=== PATIENT | female | born 1945 | race Caucasian/White ===

== ENCOUNTER → 2016-07-21 | Outpatient (CLI) | payer MEDICARE, BC, OTHER ==
--- NOTE | 2016-07-21 11:30 | REP ---
BILATERAL HAND COMPLETE: 07/21/2016. Clinical history: 2 weeks of pain. No trauma described. Findings:Right hand: Four views show distal radius and ulna without fracture or focal lesion. The carpal bones and their joint spaces are intact. The metacarpals are without fracture and their articulations are without erosion, subluxation or large spurs. There is slight narrowing of the MCP joints. Likewise the phalanges are without fracture or focal lesion. There are minimal degenerative changes with small spurs and narrowing of some of the IP joints. Impression: 1. Mild osteoarthritis of the right hand without visible or displaced fracture, avulsion or erosion. Left hand: Four views show distal radius and ulna without fracture or focal lesion. The carpal bones and their joint spaces are intact. The metacarpals are without fracture and articulations are without erosion, subluxation or large spurs. There is slight narrowing of the MCP joints. Likewise the phalanges are without fracture or focal lesion and the minimal degenerative changes with small spurs and narrowing of some of the IP joints. Impression: 1. Mild osteoarthritis of the left hand without visible or displaced fracture, avulsion or erosion. Signed by Royce Mena MD 07/21/2016 07:29 P
== END ==
LOC: M WUC 10:38
PROVIDERS: ATTEND Physician Assistant
DX: M19.042 Primary osteoarthritis, left hand (principal); M19.041 Primary osteoarthritis, right hand; M25.541 Pain in joints of right hand; M25.542 Pain in joints of left hand

== ENCOUNTER 2017-08-20 10:40 | Day surgery (SDC) | payer MEDICARE, BC, OTHER ==
[2017-08-20] MEDS: NS 1,000 ML IV (10:45)
[2017-08-20] MEDS ORDERED: ALBUTEROL SULFATE 2.5 MG/0.5 ML INH NEB SOLN INH (11:15)
[2017-08-20] MEDS ORDERED: PROPOFOL 200 MG/20 ML VIAL As Ordered ×2 (11:22)
== END 2017-08-20 13:11 | disposition home or self-care (01) ==
LOC: M OPP 10:40
DX: K62.1 Rectal polyp (principal); K63.5 Polyp of colon; D12.3 Benign neoplasm of transverse colon; K64.4 Residual hemorrhoidal skin tags; Z86.010 Personal history of colon polyps; K59.00 Constipation, unspecified; K44.9 Diaphragmatic hernia without obstruction or gangrene; R13.10 Dysphagia, unspecified; K31.89 Other diseases of stomach and duodenum; I10 Essential (primary) hypertension; E03.9 Hypothyroidism, unspecified; Z79.899 Other long term (current) drug therapy; Z88.0 Allergy status to penicillin; Z88.8 Allergy status to other drugs, medicaments and biological substances; Z91.040 Latex allergy status; J30.2 Other seasonal allergic rhinitis; M13.849 Other specified arthritis, unspecified hand
CPT/HCPCS: 45385

== ENCOUNTER → 2017-09-16 | Outpatient (CLI) | payer MEDICARE, BC | LOC: M WHC 10:11 | DX: Z12.31 Encounter for screening mammogram for malignant neoplasm of breast (principal); Z01.419 Encounter for gynecological examination (general) (routine) without abnormal findings (principal); Z78.0 Asymptomatic menopausal state | CPT/HCPCS: 77067 ==

== ENCOUNTER → 2018-10-21 | Outpatient (CLI) | payer MEDICARE, BC ==
[~2018-10-21] MED LIST: IPRA0.00 IN; LEVO137T2 PO; LISI-538 PO; NICO21DI31 TOP; OMEP-221 PO; PROAAER10 INH; PROP60CA PO
--- NOTE | 2018-10-21 11:06 | REPMRS ---
Patient History The patient states she had a clinical breast exam in 10/2018. Patient is postmenopausal. No known family history of cancer. No Hormone Replacement Therapy 3D TOMOSYNTHESIS WAS PERFORMED. The [facility] lifetime risk for breast cancer is 3.6%. Digital Woman Screen Mammo: October 21, 2018 - Exam #: [id number] Bilateral CC and MLO view(s) were taken. Technologist: Daija Agudelo, Technologist Prior study comparison: September 16, 2017, digital woman screen mammo performed at [facility]. July 23, 2012, digital woman screen mammo performed at [facility]. FINDINGS: There are scattered fibroglandular densities. There has been no change in the appearance of the mammogram from the prior studies. There is a mild amount of residual fibroglandular tissue which is fairly symmetric. There is no interval development of dominant mass, architectural distortion, or clustered microcalcification suggestive of malignancy. Assessment: BI-RADS/ACR category 1 mammogram. Negative Mammogram. Recommendation Routine screening mammogram in 1 year (for women over age 40). This mammogram was interpreted with the aid of an FDA-approved computer-aided dectection system. Electronically Signed By: Gt Noland MD 10/21/18 [id number]
== END ==
LOC: M WHC 09:21
PROVIDERS: ATTEND Nurse Practitioner Family
DX: Z12.31 Encounter for screening mammogram for malignant neoplasm of breast (principal); Z78.0 Asymptomatic menopausal state
CPT/HCPCS: 77063; 77067; G0463

== ENCOUNTER → 2020-10-18 | Outpatient (CLI) | payer MEDICARE, BC ==
[~2020-10-18] MED LIST changes: -LISI-538 PO; +LISI20TA33 PO; +NICO1DIS12 TOP; -NICO21DI31 TOP
[2020-10-18 15:34] LABS: HEMATOCRIT 44.1 % (36.0-47.0); HEMOGLOBIN 14.7 g/dl (12.0-15.5); MEAN CORPUSCULAR HEMOGLOBIN 31.3 pg (27.0-33.0); MEAN CORPUSCULAR HGB CONC 33.3 g/dl (32.0-36.5); MEAN CORPUSCULAR VOLUME 93.8 fl (80.0-96.0); PLATELET COUNT, AUTOMATED 158 10^3/uL (150-450); WHITE BLOOD COUNT 8.2 10^3/uL (4.0-10.0)
[2020-10-18 16:07] LABS: ALBUMIN 3.5 GM/DL (3.2-5.2); ALT/SGPT 21 U/L (12-78); BILIRUBIN,TOTAL 0.3 MG/DL (0.2-1.0); BLOOD UREA NITROGEN 12 MG/DL (7-18); CARBON DIOXIDE LEVEL 27 MEQ/L (21-32); CHLORIDE LEVEL 107 MEQ/L (98-107); CREATININE FOR GFR 0.85 MG/DL (0.55-1.30); GLOMERULAR FILTRATION RATE > 60.0 (>39); GLUCOSE, FASTING 130 MG/DL (70-100); SODIUM LEVEL 141 MEQ/L (136-145); TOTAL PROTEIN 7.2 GM/DL (6.4-8.2)
[2020-10-18 16:11] LABS: ATYPICAL LYMPH 8 % (0-5); BASOPHILS 1 % (0-1); LYMPHOCYTES 39 % (16-44); MONOCYTES 3 % (0-5); NEUTROPHILS 48 % (28-66); PLATELET ESTIMATE NORMAL (NORMAL)
== END ==
LOC: M WUC 11:18
PROVIDERS: ATTEND Physician Assistant
DX: L03.115 Cellulitis of right lower limb (principal); S80.861A Insect bite (nonvenomous), right lower leg, initial encounter; W57.XXXA Bitten or stung by nonvenomous insect and other nonvenomous arthropods, initial encounter; Y92.9 Unspecified place or not applicable

== ENCOUNTER → 2023-08-26 | Outpatient (CLI) | payer MEDICARE, BC ==
[~2023-08-26] MED LIST changes: -OMEP-221 PO; +OMEP40CA5 PO
== END ==
LOC: M RAD 15:01
PROVIDERS: ATTEND Student in an Organized Health Care Education/Training Program
DX: J44.9 Chronic obstructive pulmonary disease, unspecified (principal); E03.9 Hypothyroidism, unspecified; C34.11 Malignant neoplasm of upper lobe, right bronchus or lung; E86.0 Dehydration; R11.2 Nausea with vomiting, unspecified; H26.9 Unspecified cataract

== ENCOUNTER → 2024-03-10 | Outpatient (CLI) | payer MEDICARE, BC | LOC: M PLAIMG 12:07 | PROVIDERS: ATTEND Student in an Organized Health Care Education/Training Program | DX: J44.9 Chronic obstructive pulmonary disease, unspecified (principal); I25.10 Atherosclerotic heart disease of native coronary artery without angina pectoris; R91.8 Other nonspecific abnormal finding of lung field; J43.2 Centrilobular emphysema; J47.9 Bronchiectasis, uncomplicated; N62 Hypertrophy of breast; I71.22 Aneurysm of the aortic arch, without rupture ==